=== PATIENT | female | born 1955 | race Caucasian/White ===

== ENCOUNTER 2021-04-23 21:50 | Emergency (ER) | payer MEDICAID ==
[~2021-04-23] VITALS: Ht 160 cm; Wt 99.8 kg
--- NOTE | 2021-04-23 22:10 | NUR ---
Patient presents to ED from home (w/ neighbor) for abdominal pain that begins in the periumbilical region and radiates towards her back bilaterally. Hx of renal stones. A&Ox4. Uzbek speaking. Cooperative and pleasant. No neurological deficits. NSR. No cp, no palpitations, no diaphoresis. Afebrile. Saturations >94% on room air. No SOB, no labored breathing. GI/: No dysuria, hesitation, or burning when urinating. no other issues present.
--- NOTE | 2021-04-23 22:26 | NUR ---
Patient down for CT at this time
[2021-04-23 22:33] LABS: *BILIRUBIN,URIN NEGATIVE (NEGATIVE); *BLOOD, URINE 2+ (NEGATIVE); *COLOR,URINE YELLOW (YELLOW); *KETONES,URINE NEGATIVE (NEGATIVE); *UROBILINOGEN,URINE 0.2 E.U./dl (NORMAL); LEUKOCYTE ESTERASE ,URINE 2+ (NEGATIVE); NITRITE, URINE NEGATIVE (NEGATIVE); UGLUCOSE NEGATIVE (NEGATIVE)
[2021-04-23 22:34] LABS: BASOPHILS # (AUTO) 0.1 K/uL (0.0-8.0); BASOPHILS % (AUTO) 0.7 % (0.0-2.0); EOSINOPHILS # (AUTO) 0.1 K/uL (0.0-0.7); EOSINOPHILS % (AUTO) 1.6 % (0.0-7.0); HEMATOCRIT 38.4 % (31.2-41.9); HEMOGLOBIN 12.7 g/dL (10.9-14.3); LYMPHOCYTES # (AUTO) 2.5 K/uL (20.0-40.0); LYMPHOCYTES % (AUTO) 30.8 % (20.5-51.5); MEAN CORPUSCULAR HGB CONC 33 g/dL (32.3-35.6); MEAN CORPUSCULAR VOLUME 84.2 fL (75.5-95.3); MONOCYTES # (AUTO) 0.5 K/uL (2.0-10.0); MONOCYTES % (AUTO) 6.2 % (0.0-11.0); NEUTROPHILS # (AUTO) 4.9 K/uL (1.8-8.9); NEUTROPHILS % (AUTO) 60.7 % (38.5-71.5); PLATELET COUNT (AUTO) 229 K/uL (179-408); RED BLOOD CELL COUNT(AUTO) 4.55 MIL/uL (3.63-4.92); WHITE BLOOD COUNT (AUTO) 8.1 K/uL (3.8-11.8)
[2021-04-23 22:38] LABS: POTASSIUM 3.5 mmol/L (3.5-5.1)
[2021-04-23 22:39] LABS: *CLARITY,URINE HAZY (CLEAR)
--- NOTE | 2021-04-23 22:40 | NUR ---
Back from CT at this time
[2021-04-23 22:43] LABS: BACTERIA,URINE FEW /HPF (NONE SEEN); SQUAMOUS EPITHELIAL CELL,UR MODERATE /HPF (NONE SEEN); WBC,URINE 20-50 /HPF (0-3)
[2021-04-23 22:44] LABS: BILIRUBIN,DIRECT 0.1 mg/dL (0.0-0.2); BILIRUBIN,TOTAL 0.5 mg/dL (0.2-1.0); TOTAL PROTEIN, SERUM 6.6 g/dL (6.4-8.2)
--- NOTE | 2021-04-23 22:58 | NUR ---
physical therapy technician at bedside
[2021-04-23] MEDS ORDERED: NITROFURANTOIN/NITROFURAN MAC 100 MG CAPSULE PO ONE ×2 (23:00→23:03)
[2021-04-23] MEDS ORDERED: ONDA4TAB5 PO (23:51)
[2021-04-23] MEDS ORDERED: AMOX-430 PO (23:51)
[2021-04-23] MEDS ORDERED: HYDR-4209 PO (23:51)
[2021-04-24] MEDS ORDERED: PIPERACILLIN/TAZOBACTAM/D5W 50 ML IV ONE
[2021-04-24] MEDS ORDERED: PIPERACILLIN SODIUM/TAZOBACTAM 3.375 G in IV DEXTROSE 5% 50 ML IV ONE
[2021-04-24 00:41] VITALS: BP 130/77
--- NOTE | 2021-04-24 00:42 | NUR ---
Patient discharged to home in stable condition. Written and verbal after care instructions given. Patient verbalizes understanding of instructions. Stressed follow up or return to ER for worsening s/s. VSS. Steady gait. All belongings with patient. Stressed importance for return visit tomorrow 7am.
[2021-04-25] MEDS ORDERED: ATOR40TA PO (15:29)
[2021-04-25] MEDS ORDERED: FERR325T28 PO (15:30)
[2021-04-25] MEDS ORDERED: DOXA4TAB3 PO (15:37)
[2021-04-25] MEDS ORDERED: LOSA100T31 PO (15:37)
[2021-04-25] MEDS ORDERED: METO-356 PO (15:37)
[2021-04-25] MEDS ORDERED: ASPI81TA31 PO (15:37)
[2021-04-25] MEDS ORDERED: AMLO10TA59 PO (15:37)
[2021-04-25] MEDS ORDERED: CYAN-51 PO (15:37)
[2021-04-26] MEDS ORDERED: ATOR10TA PO (18:52)
== END 2021-04-24 00:35 | disposition left against medical advice (07) ==
LOC: ER 21:50
DX: K80.00 Calculus of gallbladder with acute cholecystitis without obstruction (principal); Z90.710 Acquired absence of both cervix and uterus
CPT/HCPCS: 36415; 74176; 76705; 80048; 80076; 81001; 83690; 85025; 85730; 87086; 96365; 99285; J2543; A4663

== ENCOUNTER 2021-04-24 07:18 | Inpatient (IN) | payer MEDICAID ==
[~2021-04-24] VITALS: Ht 160 cm; Wt 99.8 kg
[~2021-04-24 07:18] MED LIST: AMOX-430 PO; HYDR-4209 PO; ONDA4TAB5 PO
--- NOTE | 2021-04-24 07:38 | NUR ---
PT IS IN ROOM #2B. DR DAVIS EVALUATED THE PT.
[2021-04-24] MEDS ORDERED: PIPERACILLIN SODIUM/TAZOBACTAM 3.375 G in IV DEXTROSE 5% 50 ML IV ONE (08:00)
[2021-04-24] MEDS ORDERED: IV NS 1000 ML 1,000 ML IV ONE (08:00)
[2021-04-24 08:04] LABS: CREATININE 0.9 mg/dL (0.6-1.3); HEMATOCRIT 36.7 % (31.2-41.9); MEAN CORPUSCULAR HEMOGLOBIN 28.2 uug (24.7-32.8); PLATELET COUNT (AUTO) 216 K/uL (179-408); POTASSIUM 3.3 mmol/L (3.5-5.1)
[2021-04-24 08:10] LABS: BILIRUBIN,TOTAL 0.9 mg/dL (0.2-1.0); TOTAL PROTEIN, SERUM 6.4 g/dL (6.4-8.2)
[2021-04-24] MEDS ORDERED: PIPERACILLIN/TAZOBACTAM/D5W 50 ML IV ONE (08:13)
[2021-04-24] MEDS ORDERED: ONDANSETRON ODT 4 MG TAB.RAPDIS ONE (08:51)
[2021-04-24] MEDS ORDERED: POTASSIUM CHLORIDE 20 MEQ TAB.PRT.SR PO ONE (09:15)
[2021-04-24] MEDS ORDERED: ONDANSETRON 4 MG/2 ML VIAL ONE (09:37)
[2021-04-24] MEDS ORDERED: ONDANSETRON 4 MG/2 ML VIAL IV ONE (09:45)
[2021-04-24] MEDS ORDERED: MORPHINE SULFATE 2 MG/1 ML DISP.SYRIN IV PRN (10:15)
[2021-04-24] MEDS ORDERED: ONDANSETRON 4 MG/2 ML VIAL IV PRN (10:15)
[2021-04-24] MEDS ORDERED: ACETAMINOPHEN 650 MG SUPP.RECT RC PRN (10:15)
--- NOTE | 2021-04-24 10:30 | NUR ---
admitted from home a 65 yo female with adm dx of cholelethiasis awake alert and oriented x3, speaks lithuanian. routine admission assessment done, MD aware of admission
--- NOTE | 2021-04-24 10:55 | NUR ---
REPORT WAS GIVEN TO RN M/S. PT WAS TRANSFERED TO ROOM #304.
[2021-04-24 11:00] VITALS: BP 139/69
[2021-04-24] MEDS: POTASSIUM CHLORIDE 20 MEQ in IV D5 1/2 NS 1000 ML 1,000 ML IV PRN (12:20)
[2021-04-24] MEDS ORDERED: PIPERACILLIN SODIUM/TAZOBACTAM 3.375 G in IV DEXTROSE 5% 50 ML IV SCH ×2 (14:00→21:00)
[2021-04-24] MEDS: PIPERACILLIN SODIUM/TAZOBACTAM 3.37 G in IV DEXTROSE 5% 100 ML IV SCH ×2 (14:39→23:45)
[2021-04-24 16:00] VITALS: BP 137/69
--- NOTE | 2021-04-24 18:30 | NUR ---
KEPT ON NPO ORDERED, PATIENT DENIES PAIN/NV. CONTINUE WITH IVF AND IV ANTIBIOTIC, NO REACTION FROM [facility]OS[facility]. OBSERVED
[2021-04-24 20:00] VITALS: BP 139/63
[2021-04-24 20:03] VITALS: BP 139/63
[2021-04-24] MEDS ORDERED: ENALAPRILAT DIHYDRATE 1.25 MG/1 ML VIAL IV PRN (21:15)
[2021-04-25] VITALS: BP 132/74
[2021-04-25] MEDS: POTASSIUM CHLORIDE 20 MEQ in IV D5 1/2 NS 1000 ML 1,000 ML IV PRN ×2 (01:38→14:48)
[2021-04-25 04:24] VITALS: BP 138/74
--- NOTE | 2021-04-25 06:49 | NUR ---
Patient resting in bed. Alert and oriented, Liberian speaking. Patient able to make needs known. Denies pain, n/v, and discomfort at this time. Right AC IV patent and intact, fluids infusing per order. All needs were met and attended to. NPO status remains intact. Will endorse to oncoming nurse.
[2021-04-25 07:03] LABS: HEMATOCRIT 36.1 % (31.2-41.9); PLATELET COUNT (AUTO) 216 K/uL (179-408)
[2021-04-25 07:28] LABS: BILIRUBIN,TOTAL 0.8 mg/dL (0.2-1.0); CREATININE 0.9 mg/dL (0.6-1.3); MAGNESIUM 1.4 mg/dL (1.8-2.4); PHOSPHOROUS 3.8 mg/dL (2.5-4.9); POTASSIUM 3.8 mmol/L (3.5-5.1)
[2021-04-25 07:32] VITALS: BP 140/73
[2021-04-25 07:38] LABS: THYROID STIMULATING HORMONE 3.33 mIU/mL (0.358-3.740)
[2021-04-25] MEDS: PIPERACILLIN SODIUM/TAZOBACTAM 3.37 G in IV DEXTROSE 5% 100 ML IV SCH ×2 (07:42→16:44)
[2021-04-25] MEDS: PANTOPRAZOLE SODIUM 40 MG VIAL IV SCH (09:24)
[2021-04-25 11:34] VITALS: BP 130/76
[2021-04-25] MEDS: MAGNESIUM SULFATE/D5W 100 ML IV SCH ×4 (12:18→15:30)
[2021-04-25] MEDS ORDERED: ATOR40TA PO (15:29)
[2021-04-25] MEDS ORDERED: FERR325T28 PO (15:30)
[2021-04-25] MEDS ORDERED: ASPI81TA31 PO (15:37)
[2021-04-25] MEDS ORDERED: AMLO10TA59 PO (15:37)
[2021-04-25] MEDS ORDERED: DOXA4TAB3 PO (15:37)
[2021-04-25] MEDS ORDERED: METO-356 PO (15:37)
[2021-04-25] MEDS ORDERED: CYAN-51 PO (15:37)
[2021-04-25] MEDS ORDERED: LOSA100T31 PO (15:37)
[2021-04-25 16:00] VITALS: BP 122/83
--- NOTE | 2021-04-25 18:13 | NUR ---
Patient awake resting in bed, alert and oriented x 4. On room air. With Right AC #18gauge IV access with 25mEq KCl in D5 1/2NS @80cc/hr. No signs of acute distress. Patient denies pain/ discomfort at this time. Patient compliant with medication and care. Medications given and patient tolerated well. Safety and comfort measures provided. Will endorse to incoming shift for continuity of care.
[2021-04-25 20:16] VITALS: BP 128/70
[2021-04-25] MEDS ORDERED: ACETAMINOPHEN 325 MG TABLET PO PRN (22:00)
[2021-04-26] MEDS: PIPERACILLIN SODIUM/TAZOBACTAM 3.37 G in IV DEXTROSE 5% 100 ML IV SCH ×4 (00:07→15:08)
[2021-04-26 00:36] VITALS: BP 140/67
[2021-04-26] MEDS: POTASSIUM CHLORIDE 20 MEQ in IV D5 1/2 NS 1000 ML 1,000 ML IV PRN ×2 (03:25→17:27)
[2021-04-26 04:40] VITALS: BP 126/68
[2021-04-26 06:26] LABS: HEMATOCRIT 35.3 % (31.2-41.9); MEAN CORPUSCULAR HEMOGLOBIN 28.4 uug (24.7-32.8); MEAN CORPUSCULAR VOLUME 84.2 fL (75.5-95.3); PLATELET COUNT (AUTO) 217 K/uL (179-408)
[2021-04-26 06:48] LABS: BILIRUBIN,TOTAL 0.7 mg/dL (0.2-1.0); CREATININE 0.9 mg/dL (0.6-1.3); MAGNESIUM 2.5 mg/dL (1.8-2.4); PHOSPHOROUS 3.4 mg/dL (2.5-4.9); POTASSIUM 3.9 mmol/L (3.5-5.1); TOTAL PROTEIN, SERUM 6.1 g/dL (6.4-8.2)
--- NOTE | 2021-04-26 08:00 | NUR ---
Pt alert and oriented x 4. Pt is farsi speaking but able to make her needs known through simple swazi and body languages. Pt denies and c/o pain. No sob noted. Call light is within reach. SNR on TELE.
[2021-04-26] MEDS: PANTOPRAZOLE SODIUM 40 MG VIAL IV SCH (08:03)
[2021-04-26 12:00] VITALS: BP 149/78
[2021-04-26] MEDS ORDERED: LOPERAMIDE HCL 2 MG CAPSULE PO PRN (12:15)
--- NOTE | 2021-04-26 12:30 | NUR ---
DR issa was notified earlier pt had watery BM. Imodium ordered and given.
--- NOTE | 2021-04-26 14:15 | NUR ---
Pt tolerating soft diet. Pt denies any abd pain. Pt has fair appetite for lunch. Pt ambulates to bathroom to urinate with good balance.
[2021-04-26 16:00] VITALS: BP 136/74
--- NOTE | 2021-04-26 18:30 | NUR ---
No further watery bm. Pt denies any c/o pain. Awaiting for possible dc home today.
[2021-04-26] MEDS ORDERED: ATOR10TA PO (18:52)
--- NOTE | 2021-04-26 19:29 | NUR ---
DR maegan og pt for d/c. Cosmo effective no further n/v noted. PT to finish d/c papers next shift.
[2021-04-26 20:17] VITALS: BP 147/80
--- NOTE | 2021-04-26 20:30 | NUR ---
Patients medications picked up from pharmacy and returned back to patient.
--- NOTE | 2021-04-26 20:51 | NUR ---
Patient discharged home in stable condition. vss upon discharge, all needs attended.
== END 2021-04-26 21:00 | disposition home or self-care (01) | DRG 249 ==
LOC: ER 07:18 → MEDSURG3 10:25 → TELE3 21:11
PROVIDERS: ADMIT Internal Medicine; ATTEND Internal Medicine
DX: A08.4 Viral intestinal infection, unspecified (principal); K76.0 Fatty (change of) liver, not elsewhere classified; N28.1 Cyst of kidney, acquired; E66.9 Obesity, unspecified; E78.5 Hyperlipidemia, unspecified; I10 Essential (primary) hypertension; K59.00 Constipation, unspecified; Z20.822 Contact with and (suspected) exposure to COVID-19; Z90.710 Acquired absence of both cervix and uterus; D50.9 Iron deficiency anemia, unspecified; Z68.39 Body mass index [BMI] 39.0-39.9, adult
CPT/HCPCS: 36415; 70030-TC; 83690; 83735; 84100; 84443; 85025; A4663; C9113; G0378; J2405; J2543; J3475; J3480; J3490; J7030; J7050; J7060; Q0162